=== PATIENT | female | born 1985 | race Asian ===

== ENCOUNTER 2016-06-09 00:02 | Inpatient (IN) | payer SELFPAY ==
[~2016-06-09] VITALS: Ht 166 cm; Wt 68.9 kg
[2016-06-09 00:15] VITALS: BP 103/53
[2016-06-09] MEDS ORDERED: LACTATED RINGERS 1,000 ML IV SCH (00:24)
[2016-06-09] MEDS ORDERED: CITRIC ACID/SODIUM CITRATE 30 ML UDC PO ONE (00:25)
[2016-06-09] MEDS ORDERED: NATURAL IRON65 MG PO (02:18)
[2016-06-09] MEDS ORDERED: PRENATAL VITAMI1 TA2 PO (02:18)
[2016-06-09] MEDS ORDERED: ceFAZolin 1,000 MG VIAL ONE (05:39)
[2016-06-09] MEDS ORDERED: CITRIC ACID/SODIUM CITRATE 30 ML UDC ONE (05:50)
[2016-06-09] MEDS ORDERED: TRIAMCINOLONE 40 MG/ML 5ML VIAL ONE (06:26)
[2016-06-09] MEDS ORDERED: OXYTOCIN 10 UNITS/ML VIAL ONE ×2 (06:26→06:42)
[2016-06-09] MEDS ORDERED: MORPHINE PRES FREE 10 MG/10 ML AMP IV ONE (06:32)
[2016-06-09] MEDS ORDERED: BUPIVACAINE-MPF 0.75% 10 ML VIAL INJ ONE (06:42)
[2016-06-09] MEDS ORDERED: METHYLERGONOVINE 0.2 MG/ML AMP ONE ×2 (06:42→07:07)
[2016-06-09] MEDS ORDERED: ONDANSETRON 4 MG/2 ML VIAL ONE (06:42)
[2016-06-09] MEDS ORDERED: OXYTOCIN 20 UNITS/LR PREMIX 1,000 ML IV SCH ×2 (06:54→19:55)
[2016-06-09] MEDS ORDERED: oxyCODONE/APAP 5/325 MG 1 TAB TAB PO PRN (06:55)
[2016-06-09] MEDS ORDERED: HYDROcodone/APAP 5/325 MG 1 TAB TAB PO PRN (06:55)
[2016-06-09] MEDS ORDERED: TRIMETHOBENZAMIDE 200 MG/2 ML SYR IM PRN (06:55)
[2016-06-09] MEDS ORDERED: SIMETHICONE 80 MG TAB.CHEW PO PRN (06:55)
[2016-06-09] MEDS ORDERED: TEMAZEPAM 15 MG CAP PO PRN (06:55)
[2016-06-09] MEDS ORDERED: METHYLERGONOVINE 0.2 MG/ML AMP IM PRN (06:55)
[2016-06-09] MEDS ORDERED: MEASLES, MUMPS, AND RUBELLA 1 VIAL SQVAC PRN (06:55)
[2016-06-09] MEDS ORDERED: IBUPROFEN 800 MG TAB PO PRN (06:55)
[2016-06-09] MEDS ORDERED: KETOROLAC 30 MG/ML VIAL IVP PRN (07:10)
[2016-06-09] MEDS ORDERED: diphenhydrAMINE 50 MG/ML VIAL IVP PRN (07:10)
[2016-06-09] MEDS ORDERED: NALOXONE 0.4 MG/ML VIAL IVP PRN ×2 (07:10)
[2016-06-09] MEDS ORDERED: MEPERIDINE 25 MG/ML SYR ONE (07:33)
[2016-06-09] MEDS: OXYTOCIN 20 UNITS/LR PREMIX 1,000 ML IV SCH ×4 (07:52→19:59)
[2016-06-09] MEDS ORDERED: OXYTOCIN 20 UNITS/LR PREMIX 1,000 ML IV ONE (07:58)
--- NOTE | 2016-06-09 09:12 | NUR ---
PATIENT HAS BEEN SCREENED AND CATEGORIZED LOW NUTRITION RISK. PATIENT WILL BE SEEN WITHIN 7 DAYS OF ADMISSION. 06/15/[address]
[2016-06-09] MEDS ORDERED: DOCUSATE SOD/SENNA 50/8.6 MG 1 TAB PO SCH (21:00)
[2016-06-11] MEDS ORDERED: INFLUENZA VIRUS VACCINE QUAD 0.5 ML SYR IMVAC SCH (05:50)
== END 2016-06-11 15:40 | disposition home or self-care (01) | DRG 766 ==
LOC: MFCC 00:02
PROVIDERS: ADMIT Obstetrics & Gynecology; ATTEND Obstetrics & Gynecology
PROC: 10D00Z1 Extraction of Products of Conception, Low, Open Approach (ICD-10-PCS; principal; 2016-06-09 06:00)
DX: O32.1XX0 Maternal care for breech presentation, not applicable or unspecified (principal); O34.211 Maternal care for low transverse scar from previous cesarean delivery; O69.1XX0 Labor and delivery complicated by cord around neck, with compression, not applicable or unspecified; Z3A.39 39 weeks gestation of pregnancy; Z37.0 Single live birth; Z28.21 Immunization not carried out because of patient refusal